=== PATIENT | male | born 1945 | race Caucasian/White ===

== ENCOUNTER 2018-06-27 19:40 | Emergency (ER) | payer MEDICARE, BC ==
--- NOTE | 2018-06-28 05:21 | EDM.PDOC ---
ED HPI GENERAL MEDICAL PROBLEM - General Chief Complaint: ENT Problem Stated Complaint: injury to nose Time Seen by Provider: 06/27/18 19:50 Source of Information: Reports: Patient History Limitations: Reports: No Limitations - History of Present Illness INITIAL COMMENTS - FREE TEXT/NARRATIVE: Pt. presents to ER with complaints of injury to bridge of the nose. He states that he struck it on a vehicle trunk at noon. It caused a superficial laceration that continues to ooze. No LOC. No further trauma reported. Onset: Today Location: Reports: Face - Related Data Allergies Allergy/AdvReac Type Severity Reaction Status Date / Time No Known Allergies Allergy Verified 06/27/18 19:49 Home Meds: Home Meds Aspirin [Children's Aspirin] 81 mg PO DAILY 08/19/13 [History] Chlorthalidone 1 tab PO DAILY 08/19/13 [History] Multivitamin with Minerals [Multiple Vitamin] 1 tab PO DAILY 08/19/13 [History] atorvaSTATin [Lipitor] 10 mg PO BEDTIME 08/19/13 [History] Metoprolol Tartrate 0.5 tab PO BID 06/27/18 [History] Tamsulosin HCl 1 tab PO DAILY 06/27/18 [History] Past Medical History - Past Surgical History Cardiovascular Surgical History: Reports: Coronary Artery Bypass Social & Family History - Tobacco Use Smoking Status *Q: Never Smoker ED ROS GENERAL - Review of Systems Review Of Systems: ROS reveals no pertinent complaints other than HPI. ED EXAM, GENERAL - Physical Exam Exam: See Below Exam Limited By: No Limitations General Appearance: Alert, WD/WN, No Apparent Distress Eye Exam: Bilateral Eye: EOMI, PERRL Nose: Other (superficial subcentimeter laceration to bridge of nose) Head: No: Facial Swelling, Facial Tenderness Neck: Normal Inspection, Supple, Non-Tender, Full Range of Motion Course - Vital Signs Last Recorded V/S: Last Vital Signs Temp 35.5 C 06/27/18 19:46 Pulse 64 06/27/18 19:46 Resp 16 06/27/18 19:46 BP 143/74 H 06/27/18 19:46 Pulse Ox 97 06/27/18 19:46 Departure - Departure Time of Disposition: 20:04 Disposition: Home, Self-Care 01 Condition: Good Clinical Impression: Laceration - Discharge Information Instructions: Skin Tear Care, [id number] Forms: ED Department Discharge Additional Instructions: Keep dressing on for 24 hours. Return if redness, swelling, or discharge from the area. - Assessment/Plan Plan: Steri strips placed on laceration Keep dressing on for 24 hours. Return if redness, swelling, or discharge from the area.
== END 2018-06-27 20:04 | disposition home or self-care (01) ==
LOC: VM.ED 19:40
DX: S01.21XA Laceration without foreign body of nose, initial encounter (principal); Z79.82 Long term (current) use of aspirin; Z79.899 Other long term (current) drug therapy; W22.8XXA Striking against or struck by other objects, initial encounter
CPT/HCPCS: 99282

== ENCOUNTER 2019-06-30 09:34 | Day surgery (SDC) | payer MEDICARE, BC ==
[~2019-06-30 09:34] MED LIST: Lactated Ringers 1,000 ML IV SCH
[2019-06-30] MEDS ORDERED: fentaNYL 100 MCG/2 ML SDV ONE (09:45)
[2019-06-30] MEDS ORDERED: Propofol 200 MG/20 ML SDV ONE ×2 (09:45→11:19)
--- NOTE | 2019-06-30 14:07 | OR ---
PREOPERATIVE DIAGNOSIS: Abdominal bloating. POSTOPERATIVE DIAGNOSIS: Abdominal bloating. PROCEDURE PERFORMED: Colonoscopy. INDICATION: The patient is a 73-year-old male who presents for colonoscopy at this time. PROCEDURE IN DETAIL: This was done in the endoscopy suite. Sedation was given per Anesthesia. He was placed in left lateral position. First, a rectal exam was done and was normal. Scope was introduced into the rectum and slowly advanced to the rectum, sigmoid, descending, transverse, and ascending colon until the cecum was reached. The patient had an extremely poor bowel prep, so visualization was limited. Upon reaching the cecum, I did irrigate it with several liters of saline, trying to get out as much of the stool as possible to allow least reasonable visualization of the ascending, transverse, descending, sigmoid. Colon and rectum all looked relatively normal. No lesions or masses were noted. FINAL DIAGNOSIS: Normal colonoscopy within the realm of a poor bowel prep. BKD: 06/30/2019 11:51:06 MODL: 06/30/2019 14:00:32 /[id number]
== END 2019-06-30 13:20 | disposition home or self-care (01) ==
LOC: VM.SDS 09:34
PROVIDERS: ATTEND Surgery
DX: R14.0 Abdominal distension (gaseous) (principal); I10 Essential (primary) hypertension; I25.10 Atherosclerotic heart disease of native coronary artery without angina pectoris; E78.5 Hyperlipidemia, unspecified; N40.1 Benign prostatic hyperplasia with lower urinary tract symptoms; R35.1 Nocturia; Q85.00 Neurofibromatosis, unspecified; Z79.82 Long term (current) use of aspirin; Z79.899 Other long term (current) drug therapy
CPT/HCPCS: J2704; J3010; J7120

== ENCOUNTER 2020-08-08 20:52 | Emergency (ER) | payer OTHER, MEDICARE, BC ==
[2020-08-08] MEDS ORDERED: Lidocaine 1% 30 ML SDV INJECT ONE (21:00)
--- NOTE | 2020-08-08 21:55 | EDM.PDOC ---
ED HPI GENERAL MEDICAL PROBLEM - General Chief Complaint: Laceration Stated Complaint: Fall / Laceration Time Seen by Provider: 08/08/20 20:55 Source of Information: Reports: Patient History Limitations: Reports: No Limitations - History of Present Illness INITIAL COMMENTS - FREE TEXT/NARRATIVE: Pt. presents to ER with complaints of laceration to head post fall. Pt. 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 He states that he stuck his head but remembers the entire event. Denies any injury other than what is isolated to the back of his head. No neck pain. No nausea or vomiting. Pt. denies any acute vision loss or change. Denies any headache. He is not sure when his tetanus was last updated. He denies any chest pain, palpitations, lightheadedness, weakness or other worrisome signs/symptoms pre/post fall. It appears to have been a mechanical fall due to icy conditions. Onset: Today Onset Date: 08/08/20 Location: Reports: Head Quality: Reports: Dull - Related Data Allergies Allergy/AdvReac Type Severity Reaction Status Date / Time No Known Allergies Allergy Verified 08/08/20 21:06 Home Meds: Home Meds Aspirin [Children's Aspirin] 81 mg PO DAILY 08/19/13 [History] Chlorthalidone 25 mg PO DAILY 08/19/13 [History] Multivitamin with Minerals [Multiple Vitamin] 1 tab PO DAILY 08/19/13 [History] Metoprolol Tartrate 12.5 mg PO BID 06/27/18 [History] Tamsulosin HCl 0.4 mg PO DAILY 06/27/18 [History] Raheem Cit/Mag/D3/Zn/Allocation Analyst/Kurt/Bor [Citracal-Vit D + Magnesium] 2 tab PO DAILY 06/23/19 [History] Fluticasone Propionate [Flonase] 2 sprays IN DAILY 06/23/19 [History] atorvaSTATin [Lipitor] 40 mg PO BEDTIME 06/23/19 [History] Past Medical History Cardiovascular History: Reports: CAD, High Cholesterol, Hypertension Respiratory History: Reports: Other (See Below) Other Respiratory History: allergic rhinitis Other Gastrointestinal History: Recent Gaxstric distention Genitourinary History: Reports: BPH, Urinary Incontinence Neurological History: Reports: Other (See Below) Other Neuro History: neurofibromatosis - Past Surgical History Cardiovascular Surgical History: Reports: Coronary Artery Bypass GI Surgical History: Reports: Colonoscopy Social & Family History - Tobacco Use Tobacco Use Status *Q: Never Tobacco User - Recreational Drug Use Recreational Drug Use: No ED ROS GENERAL - Review of Systems Review Of Systems: See Below Constitutional: Reports: No Symptoms HEENT: Reports: Other (scalp laceration) Respiratory: Reports: No Symptoms Cardiovascular: Reports: No Symptoms Endocrine: Reports: No Symptoms GI/Abdominal: Reports: No Symptoms : Reports: No Symptoms Musculoskeletal: Reports: No Symptoms Skin: Reports: Other (scalp laceration) Neurological: Reports: No Symptoms Psychiatric: Reports: No Symptoms Hematologic/Lymphatic: Reports: No Symptoms Immunologic: Reports: No Symptoms ED EXAM, SKIN/RASH Exam: See Below Exam Limited By: No Limitations General Appearance: Alert, WD/WN, No Apparent Distress Eye Exam: Bilateral Eye: EOMI, Normal Fundi, Normal Inspection, PERRL Throat/Mouth: Normal Inspection, Normal Lips, Normal Teeth, Normal Oropharynx, Normal Voice, No Airway Compromise Head: Other ([id number] stallate laceration with superficial abrasion noted to occiput of head. No obvious bony deformity.) Neck: Normal Inspection, Supple, Non-Tender, Full Range of Motion Extremities: Normal Inspection, Normal Range of Motion, Non-Tender, No Pedal Johnny ma, Normal Capillary Refill Neurological: Alert, Oriented, CN II-XII Intact, Normal Cognition, Normal Gait, Normal Reflexes, No Motor/Sensory Deficits Psychiatric: Normal Affect, Normal Mood Skin: Warm, Dry, Intact, Normal Color, No Rash ED SKIN PROCEDURES - Laceration/Wound Repair Posterior Head Appearance: Subcutaneous Local Anesthetic Volume: 5cc Skin Prep: Chlorhexidine (Hibiciens), Saline Exploration/Debridement/Repair: Wound Explored, Moderate Debridement, Foreign Material Removed, Wound Margins Revised Closed with: Lillie Lac/Wound length In cm: 6 # of Sutures: 9 Course - Vital Signs Last Recorded V/S: Last Vital Signs Temp 36.2 C 08/08/20 21:07 Pulse 78 08/08/20 21:07 Resp 16 08/08/20 21:07 BP 173/87 H 08/08/20 21:07 Pulse Ox 97 08/08/20 21:07 - Orders/Labs/Meds Orders: Active Orders 24 hr Category Date Time Status Head wo Cont [CT] Stat Exams 08/08/20 20:58 Taken Meds: Medications Discontinued Medications Generic Name Dose Route Start Last Admin Trade Name Armando PRN Reason Stop Dose Admin Diphtheria/Tetanus/Acell Pertussis 0.5 ml 08/08/20 22:00 08/08/20 22:04 Boostrix IM 08/08/20 22:01 0.5 ml .ONCE ONE Administration Lidocaine HCl 30 ml 08/08/20 21:00 08/08/20 21:03 Xylocaine-Mpf 1% INJECT 08/08/20 21:01 30 ml ONETIME ONE Administration - Radiology Interpretation Free Text/Narrative:: CT brain obtained, negative for acute pathology Departure - Departure Time of Disposition: 22:57 Disposition: Home, Self-Care 01 Clinical Impression: Laceration - Discharge Information Instructions: Laceration Care, Adult Referrals: Jose Luis Noyola SERVICE ORDER CLERK [Primary Care Provider] - Forms: ED Department Discharge Additional Instructions: Lillie out in clinic in 10 days. Keep dry for 48 hours. Return to ER if you develop headache that does not improve with over the counter medications, vision changes, or vomiting. Sepsis Event Note (ED) - Evaluation Sepsis Screening Result: No Definite Risk - Focused Exam Vital Signs: Vital Signs Temp Pulse Resp BP Pulse Ox 08/08/20 21:07 36.2 C 78 16 173/87 H 97 - Problem List Review Problem List Initiated/Reviewed/Updated: Yes - My Orders Last 24 Hours: My Active Orders 08/08/20 20:58 Head wo Cont [CT] Stat - Assessment/Plan Last 24 Hours: My Active Orders 08/08/20 20:58 Head wo Cont [CT] Stat Plan: Lillie out in clinic in 10 days. Keep dry for 48 hours. Return to ER if you develop headache that does not improve with over the counter medications, vision changes, or vomiting.
[2020-08-08] MEDS ORDERED: Diphtheria,Pertussis(Acell),Tetanus Vaccine 0.5 ML Syringe IM ONE (22:00)
--- NOTE | 2020-08-09 08:37 | CT ---
[id number] CT/CT Head WO IV EXAM: CT Head WO IV CLINICAL DATA: SLIPPED ON ICE, LACERATION TO BACK OF HEAD. COMPARISON STUDY: None FINDINGS: Small scalp laceration and contusion overlying the high left parietal region. No underlying calvarial fracture. Mild central predominant parenchymal atrophy throughout the cerebral hemispheres. Calcified atherosclerotic plaque in the intracranial segments of the internal carotid and vertebral arteries. Calvarium intact. Paranasal sinuses and mastoid air cells are clear. IMPRESSION: High left parietal scalp contusion and laceration. No underlying calvarial fracture or acute intracranial findings. Jonatan Moy MD 08/09/20 0836 Thank you for allowing us to participate in the care of your patient.
== END 2020-08-08 22:14 | disposition home or self-care (01) ==
LOC: SUPCPDRO 20:52 → VM.ED 20:52
DX: S01.01XA Laceration without foreign body of scalp, initial encounter (principal); E78.00 Pure hypercholesterolemia, unspecified; I25.10 Atherosclerotic heart disease of native coronary artery without angina pectoris; I10 Essential (primary) hypertension; N40.1 Benign prostatic hyperplasia with lower urinary tract symptoms; N39.498 Other specified urinary incontinence; Z23 Encounter for immunization; Z79.82 Long term (current) use of aspirin; Z79.899 Other long term (current) drug therapy; W00.0XXA Fall on same level due to ice and snow, initial encounter; Y92.811 Bus as the place of occurrence of the external cause
CPT/HCPCS: 12002; 70450; 90471; 90715; 99283-25; 99284

== ENCOUNTER 2022-10-04 15:57 | Emergency (ER) | payer MEDICARE, BC ==
[2022-10-04] MEDS: Acetaminophen/HYDROcodone 325-10 MG Tab PO ONE (18:22)
[2022-10-04] MEDS: Orphenadrine 60 MG/2 ML Inj IM ONE (18:26)
[2022-10-04] MEDS: Ketorolac 30 MG/ML SDV IM ONE (18:27)
[2022-10-04 19:00] LABS: ANION GAP 19.2 mmol/L (5-15)
[2022-10-04] MEDS: Take Home: Acetaminophen/HYDROcodone 325-10 MG, 5 Tab Pack PO ONE (19:50)
[2022-10-04] MEDS: Take Home: Cyclobenzaprine 10 MG Tab, 4 Tab Pack PO ONE (19:50)
== END 2022-10-04 20:00 | disposition home or self-care (01) ==
LOC: VM.ED 15:57
DX: M54.50 Low back pain, unspecified (principal); I25.10 Atherosclerotic heart disease of native coronary artery without angina pectoris; E78.00 Pure hypercholesterolemia, unspecified; N40.0 Benign prostatic hyperplasia without lower urinary tract symptoms; I10 Essential (primary) hypertension; Z79.82 Long term (current) use of aspirin; Z95.1 Presence of aortocoronary bypass graft; Z79.899 Other long term (current) drug therapy
CPT/HCPCS: 36415; 72100; 80048; 83735; 85025; 96372; 99284; A9270-GY; J1885; J2360

== ENCOUNTER 2023-01-23 16:07 | Emergency (ER) | payer MEDICARE, BC ==
[2023-01-23 17:42] LABS: BASOPHILS PERCENT AUTO 0.6 % (0.2-1.2); EOSINOPHILS ABSOLUTE AUTO 0.2 x10^3/uL (0.0-0.5); EOSINOPHILS PERCENT AUTO 2.8 % (0.0-4.0); HEMATOCRIT 45.3 % (40.0-52.0); IMMATURE GRAN ABSOLUTE AUTO 0.01 x10^3/uL (0.00-0.07); LYMPHOCYTES ABSOLUTE AUTO 1.4 x10^3/uL (1.0-4.8); LYMPHOCYTES PERCENT AUTO 21.6 % (25.0-50.0); MEAN CORPUSCULAR HEMOGLOBIN 30.5 pg (26.0-32.0); MEAN CORPUSCULAR HGB CONC 37.5 g/dL (32.0-36.0); MEAN CORPUSCULAR VOLUME 81.3 fL (78.0-93.0); MONOCYTES ABSOLUTE AUTO 0.8 x10^3/uL (0.0-0.8); MONOCYTES PERCENT AUTO 11.8 % (2.0-11.0); NEUTROPHILS ABSOLUTE AUTO 4.2 x10^3/uL (1.8-7.7); NEUTROPHILS PERCENT AUTO 63.1 % (50.0-80.0); PLATELET COUNT,PLT 127 x10^3/uL (130-400); RED BLOOD CELL COUNT 5.57 x10^6/uL (4.5-6.0); WHITE BLOOD CELL COUNT,WBC 6.7 x10^3/uL (4.0-10.0)
[2023-01-23 17:58] LABS: A/G RATIO 0.95; ALANINE AMINOTRANSFERASE,ALT 19 U/L (16-63); ALBUMIN 3.5 g/dL (3.4-5.0); ALKALINE PHOSPHATASE 124 U/L (46-116); ASPARTATE AMNIOTRANSFERASE,AST 25 U/L (15-37); BILIRUBIN TOTAL 2.6 mg/dL (0.2-1.0); BLOOD UREA NITROGEN,BUN 21 mg/dL (7-18); CARBON DIOXIDE,CO2 26 mmol/L (21-32); CHLORIDE,CL 101 mmol/L (98-107); GLUCOSE RANDOM 100 mg/dL (70-99); PROTEIN TOTAL,TP 7.2 g/dL (6.4-8.2); SODIUM,NA 138 mmol/L (136-145)
[2023-01-23 18:00] LABS: ANION GAP 13.8 mmol/L (5-15); ESTIMATED GFR 78 mL/min (>=60); POTASSIUM,K 2.8 mmol/L (3.5-5.1)
[2023-01-23] MEDS ORDERED: Morphine 4 MG/ML Syringe IVPUSH ONE (18:05)
[2023-01-23] MEDS ORDERED: Ondansetron 4 MG/2 ML SDV IVPUSH ONE (18:06)
== END 2023-01-23 19:02 | disposition home or self-care (01) ==
LOC: VM.ED 16:07
DX: S12.9XXA Fracture of neck, unspecified, initial encounter (principal); I10 Essential (primary) hypertension; E78.00 Pure hypercholesterolemia, unspecified; I25.10 Atherosclerotic heart disease of native coronary artery without angina pectoris; Z79.82 Long term (current) use of aspirin; W01.0XXA Fall on same level from slipping, tripping and stumbling without subsequent striking against object, initial encounter
CPT/HCPCS: 36415; 80053; 85025; 96374; 96375; 99283; 99285-25; J2270; J2405